=== PATIENT | female | born 1970 ===

== ENCOUNTER 2022-08-07 08:40 | Outpatient (CLI) | payer OTHER | END 2022-08-07 08:46 | disposition home or self-care (01) | LOC: SONOGRAMA 08:40 | PROVIDERS: ATTEND Pathology Anatomic Pathology & Clinical Pathology | DX: C73 Malignant neoplasm of thyroid gland (principal); E03.2 Hypothyroidism due to medicaments and other exogenous substances; E04.1 Nontoxic single thyroid nodule ==